=== PATIENT | male | born 1970 | race African-American/Black ===

== ENCOUNTER 2019-07-11 20:49 | Inpatient (IN) | payer OTHER ==
[~2019-07-11] VITALS: Ht 175.3 cm; Wt 153.4 kg
[2019-07-11] MEDS ORDERED: METHYLPREDNISOLONE SOD SUCC 125 MG/2 ML VIAL IV STA (21:21)
[2019-07-11] MEDS ORDERED: IPRATROPIUM BROMIDE (0.02%) 0.5MG/2.5ML NEB HHN STA (21:21)
[2019-07-11] MEDS ORDERED: MAGNESIUM 2 G PREMIX 50 ML IV STA (21:21)
[2019-07-11] MEDS ORDERED: ALBUTEROL (0.083%) 2.5MG/3ML NEB HHN STA (21:21)
[2019-07-11] MEDS ORDERED: HYDRALAZINE 20MG/ML VIAL IV ONE (21:30)
[2019-07-11] MEDS ORDERED: ALBUTEROL (0.5%) 2.5MG/0.5ML NEB HHN ONE (21:36)
[2019-07-11 21:55] LABS: BASOPHILS % 0.4 % (0.0-2.0); EOSINOPHILS % 3.5 % (0.0-5.0); HEMATOCRIT. 45.4 % (42.0-52.0); HEMOGLOBIN. 15.4 g/dL (14.0-18.0); LYMPHOCYTES % 12.4 % (20.0-50.0); MEAN CORPUSCULAR HEMOGLOBIN 30.9 pg (28.0-32.0); MEAN CORPUSCULAR VOLUME 91.1 fL (80.0-94.0); MEAN PLATELET VOLUME 8.5 fl (7.4-10.4); NEUTROPHILS % 74.7 % (40.0-76.0); PLATELET 221 x1000/uL (130-400); RED BLOOD CELL COUNT 4.98 mill/uL (4.7-6.1)
[2019-07-11 21:56] LABS: CHLORIDE 102 mEq/L (98-107); PROTHROMBIN TIME 10.3 sec (9.6-11.0)
[2019-07-11] MEDS ORDERED: NICARDIPINE 40MG/200ML PREMIX 200 ML IV STA (22:15)
[2019-07-11] MEDS ORDERED: ONDANSETRON HCL 4MG/2ML INJ IV PRN (22:30)
[2019-07-11] MEDS ORDERED: IPRATROPIUM/ALBUTEROL 0.5-3(2.5)MG/3ML NEB HHN PRN (22:30)
[2019-07-11] MEDS ORDERED: ENALAPRIL 2.5MG/2ML VIAL 2ML IV ONE (22:30)
[2019-07-11] MEDS ORDERED: ENALAPRIL 1.25MG/ML VIAL 1ML IV ONE (22:30)
[2019-07-11] MEDS ORDERED: ACETAMINOPHEN 325MG TABLET PO PRN (22:30)
[2019-07-11] MEDS ORDERED: MAGNESIUM/ALUMINUM HYDROXIDE/SIMETHICONE 30ML UDC PO PRN (22:30)
[2019-07-11] MEDS ORDERED: DOCUSATE SODIUM 100MG CAPSULE PO PRN (22:30)
[2019-07-11] MEDS ORDERED: HYDROCODONE/ACETAMINOPHEN 5/325MG TABLET PO PRN (22:30)
[2019-07-11] MEDS ORDERED: LEVOFLOXACIN 500MG PREMIX 100 ML IV ONE (23:30)
[2019-07-12] VITALS (11 sets, daily range): BP systolic 145–191; BP diastolic 53–105
[2019-07-12] MEDS: CLONIDINE 0.1MG TABLET PO PRN ×2 (01:26→15:22)
[2019-07-12 06:51] LABS: HEMATOCRIT. 43.7 % (42.0-52.0); HEMOGLOBIN. 14.3 g/dL (14.0-18.0); MEAN CORPUSCULAR VOLUME 91.4 fL (80.0-94.0); MEAN PLATELET VOLUME 8.5 fl (7.4-10.4); PLATELET 264 x1000/uL (130-400); RED BLOOD CELL COUNT 4.78 mill/uL (4.7-6.1); RED CELL DISTRIBUTION WIDTH 14.1 % (11.6-14.6)
[2019-07-12 07:27] LABS: CHLORIDE 102 mEq/L (98-107)
[2019-07-12 07:38] LABS: T4 FREE 0.89 ng/dL (0.76-1.46)
[2019-07-12 07:39] LABS: LDL CHOLESTEROL 166 mg/dL (5-100)
[2019-07-12 07:42] LABS: HDL CHOLESTEROL 55 mg/dL (40-59)
[2019-07-12] MEDS ORDERED: LOSARTAN POTASSIUM 50 MG TABLET PO SCH ×2 (09:45→17:00)
[2019-07-12 10:57] LABS: PLATELET ESTIMATE NORMAL
[2019-07-12] MEDS ORDERED: BUDESONIDE 0.5MG/2ML NEB HHN SCH (11:00)
[2019-07-12] MEDS ORDERED: PREDNISONE 20MG TABLET PO SCH (11:00)
[2019-07-12] MEDS ORDERED: LORATADINE 10MG TABLET PO SCH (11:00)
[2019-07-12] MEDS: AMLODIPINE 5MG TABLET PO SCH ×2 (11:20→11:22)
[2019-07-12] MEDS ORDERED: IPRATROPIUM/ALBUTEROL 0.5-3(2.5)MG/3ML NEB HHN SCH (12:00)
[2019-07-12] MEDS: FLUTICASONE PROPIONATE 50MCG/SPRAY BOTTLE BOTHNSTRLS SCH ×2 (12:00→20:37)
[2019-07-12 12:04] LABS: *COCAINE SCREEN URINE NEGATIVE (NEGATIVE)
[2019-07-12 12:05] LABS: *AMPHETAMINES SCREEN URINE NEGATIVE (NEGATIVE); *BARBITURATES SCREEN URINE NEGATIVE (NEGATIVE); CANNABINOID URINE SCREEN PRESUMTIVE POSITIVE (NEGATIVE); METHADONE URINE SCREEN NEGATIVE (NEGATIVE); OPIATES URINE SCREEN NEGATIVE (NEGATIVE); PHENCYCLIDINE URINE SCREEN NEGATIVE (NEGATIVE)
[2019-07-12 12:06] LABS: *BENZODIAZEPINES SCREEN URINE NEGATIVE (NEGATIVE)
[2019-07-12] MEDS ORDERED: HYDRALAZINE HCL 25MG TABLET PO SCH (14:00)
[2019-07-12] MEDS ORDERED: TRIAMTERENE/HYDROCHLOROTHIAZID 75/50MG TABLET PO SCH (15:30)
[2019-07-12] MEDS ORDERED: NIFEDIPINE XL 60MG TAB PO SCH (15:42)
[2019-07-12] MEDS ORDERED: MONTELUKAST SODIUM 10MG TABLET PO SCH (21:00)
[2019-07-12] MEDS ORDERED: ATORVASTATIN CALCIUM 20MG TABLET PO SCH (21:00)
[2019-07-12] MEDS ORDERED: FAMOTIDINE 20MG/2ML VIAL IV SCH (21:00)
[2019-07-12] MEDS ORDERED: HYDRALAZINE HCL 50MG TABLET PO SCH (22:00)
== END 2019-07-12 21:40 | disposition short-term general hospital (02) | DRG 189 ==
LOC: ER 20:49 → 3WST 22:20 → EDBEDREQTM 22:25 → EDBEDREQ 22:25 → EDBEDREQSVC 22:25 → ENRESERV 23:19
PROVIDERS: ADMIT Family Medicine Adult Medicine; ATTEND Family Medicine Adult Medicine
DX: J96.01 Acute respiratory failure with hypoxia (principal); I16.1 Hypertensive emergency; J45.901 Unspecified asthma with (acute) exacerbation; Z68.43 Body mass index [BMI] 50.0-59.9, adult; E78.00 Pure hypercholesterolemia, unspecified; I10 Essential (primary) hypertension; R73.9 Hyperglycemia, unspecified; F17.200 Nicotine dependence, unspecified, uncomplicated; Z82.49 Family history of ischemic heart disease and other diseases of the circulatory system; E66.9 Obesity, unspecified; E78.5 Hyperlipidemia, unspecified; J00 Acute nasopharyngitis [common cold]; T38.0X5A Adverse effect of glucocorticoids and synthetic analogues, initial encounter; Y92.89 Other specified places as the place of occurrence of the external cause
CPT/HCPCS: 36415; 71045; 80061; 80305; 82962; 83036; 83605; 83880; 84145; 84439; 84443; 84481; 84484; 85379; 93005; 93970; 94640; J0360; J1956; J2930; J3475; J3490; J7512; J7611; J7620; J7626

== ENCOUNTER 2025-06-27 09:54 | Inpatient (IN) | payer OTHER ==
[~2025-06-27] VITALS: Ht 175.3 cm; Wt 167.8 kg
[2025-06-27 11:03] LABS: BASOPHILS % 1.3 % (0.0-2.0); EOSINOPHILS % 3.9 % (0.0-5.0); HEMATOCRIT. 46.0 % (42.0-52.0); HEMOGLOBIN. 15.0 g/dL (14.0-18.0); LYMPHOCYTES % 33.9 % (20.0-50.0); MEAN PLATELET VOLUME 9.1 fl (7.4-10.4); MONOCYTES % 9.9 % (2.0-8.0); NEUTROPHILS % 51.0 % (40.0-76.0); PLATELET 249 x1000/uL (130-400); RED BLOOD CELL COUNT 5.10 mill/uL (4.7-6.1); RED CELL DISTRIBUTION WIDTH 14.9 % (11.6-14.6)
[2025-06-27 11:16] LABS: CREATININE 1.1 mg/dL (0.6-1.3)
[2025-06-27 11:17] LABS: INR 1.0; UREA NITROGEN BLOOD 8 mg/dL (9-23)
[2025-06-27 11:18] LABS: ASPARTATE AMINOTRANSFERASE 22 IU/L (<34); BILIRUBIN DIRECT 0.1 mg/dL (<=3.0)
[2025-06-27 11:19] LABS: BILIRUBIN TOTAL 0.5 mg/dL (0.1-1.0); PROTEIN TOTAL 7.8 g/dL (6.0-8.3)
[2025-06-27 11:30] LABS: TROPONIN I HIGH SENSITIVITY 103 ng/L (3.0-53)
[2025-06-27] MEDS ORDERED: ZOLPIDEM TARTRATE 5MG TABLET PO PRN (15:30)
[2025-06-27] MEDS ORDERED: ONDANSETRON HCL 4MG/2ML INJ IV PRN (15:30)
[2025-06-27] MEDS ORDERED: ACETAMINOPHEN 325MG TABLET PO PRN (15:30)
[2025-06-27] MEDS ORDERED: HYDROCODONE/ACETAMINOPHEN 5/325MG TABLET PO PRN (15:30)
[2025-06-27] MEDS ORDERED: MAGNESIUM/ALUMINUM HYDROXIDE/SIMETHICONE 30ML UDC PO PRN (15:30)
[2025-06-27] MEDS ORDERED: MORPHINE SULFATE 2 MG/ML INJ (NOT FOR IM USE) IV PRN (15:30)
[2025-06-27] MEDS ORDERED: CLONIDINE 0.1MG TABLET PO PRN (15:30)
[2025-06-27 15:35] VITALS: BP_SYST 159; BP_SYST 188; BP_DIAS 103; BP_DIAS 93; PULSE 79; RESP 18; RESP 22; TEMP 36.4; TEMP 36.4736; O2SAT 98
[2025-06-27] MEDS ORDERED: NALOXONE HCL 0.4MG/ML VIAL IV PRN (15:45)
[2025-06-27] MEDS: ISOSORBIDE MONONITRATE 30MG TABLET SR 24HR PO SCH (17:18)
[2025-06-27] MEDS: METOPROLOL TARTRATE 25MG TABLET PO SCH (17:19)
[2025-06-27] MEDS: ENOXAPARIN 150MG/ML SYR SUBCUT SCH (17:28)
[2025-06-27 20:00] VITALS: TEMP 36.3; O2SAT 94
[2025-06-27] MEDS ORDERED: ENOXAPARIN 40MG/0.4ML SYR SUBCUT SCH (21:00)
[2025-06-27 21:36] VITALS: BP 161/96; PULSE 71; RESP 25; O2SAT 97
[2025-06-27] MEDS: ATORVASTATIN CALCIUM 40MG TABLET PO SCH (22:09)
[2025-06-27 22:33] VITALS: PULSE 90; RESP 20; O2SAT 99
[2025-06-27] MEDS: IPRATROPIUM/ALBUTEROL 0.5-3(2.5)MG/3ML NEB HHN PRN (22:33)
[2025-06-27 22:50] VITALS: RESP 17
[2025-06-28] VITALS (9 sets, daily range): BP systolic 117–150; BP diastolic 66–92; PULSE 64–77; RESP 13–20; TEMP 36.6–36.8; O2SAT 95–100
[2025-06-28 00:51] LABS: TROPONIN I HIGH SENSITIVITY 23287 ng/L (3.0-53)
[2025-06-28 01:12] LABS: HEPATITIS C AB NON REACTIVE (Neg) (Negative)
[2025-06-28] MEDS: PANTOPRAZOLE SODIUM 40 MG/VIAL IV SCH (09:05)
[2025-06-28] MEDS: ASPIRIN 81MG EC TABLET PO SCH (09:06)
[2025-06-28 10:01] LABS: BASOPHILS % 0.6 % (0.0-2.0); EOSINOPHILS % 3.8 % (0.0-5.0); HEMATOCRIT. 44.4 % (42.0-52.0); HEMOGLOBIN. 14.3 g/dL (14.0-18.0); LYMPHOCYTES % 31.4 % (20.0-50.0); MEAN PLATELET VOLUME 9.1 fl (7.4-10.4); MONOCYTES % 11.4 % (2.0-8.0); NEUTROPHILS % 52.8 % (40.0-76.0); PLATELET 247 x1000/uL (130-400); RED BLOOD CELL COUNT 4.95 mill/uL (4.7-6.1); RED CELL DISTRIBUTION WIDTH 15.3 % (11.6-14.6)
[2025-06-28 11:24] LABS: CREATININE 1.1 mg/dL (0.6-1.3); UREA NITROGEN BLOOD 9 mg/dL (9-23)
[2025-06-28 11:32] LABS: TROPONIN I HIGH SENSITIVITY 20255 ng/L (3.0-53)
[2025-06-28] MEDS: METOPROLOL TARTRATE 25MG TABLET PO NR (11:54)
[2025-06-28] MEDS ORDERED: ASPI-1406 PO (11:56)
[2025-06-28] MEDS ORDERED: METO-539 PO (11:56)
[2025-06-28] MEDS ORDERED: ISOS30TA91 PO (11:56)
[2025-06-28] MEDS ORDERED: LIP40 PO (11:56)
[2025-06-28] MEDS: METOPROLOL TARTRATE 50MG TABLET PO SCH (21:04)
== END 2025-06-28 21:30 | disposition short-term general hospital (02) | DRG 281 ==
LOC: ER 09:58 → 3WST 14:31 → EDBEDREQTM 14:32 → EDBEDREQ 14:32 → ENRESERV 14:49
PROVIDERS: ADMIT Internal Medicine; ATTEND Internal Medicine
PROC: 5A09357 Assistance with Respiratory Ventilation, Less than 24 Consecutive Hours, Continuous Positive Airway Pressure (ICD-10-PCS; principal; 2025-06-28)
DX: I21.4 Non-ST elevation (NSTEMI) myocardial infarction (principal); I45.2 Bifascicular block; Z68.43 Body mass index [BMI] 50.0-59.9, adult; E66.09 Other obesity due to excess calories; G47.33 Obstructive sleep apnea (adult) (pediatric); E78.00 Pure hypercholesterolemia, unspecified; J45.909 Unspecified asthma, uncomplicated; I11.9 Hypertensive heart disease without heart failure
CPT/HCPCS: 36415; 71045; 80048; 80076; 83880; 84443; 84484; 85025; 85379; 86705; 87340; 93005; 93306; 93970; 94070; 94640; 94660; 98960; 99285; A4606; J1650; J2470